=== PATIENT | male | born 1950 | race Hispanic/Latino ===

== ENCOUNTER 2024-07-30 07:36 | Inpatient (IN) | payer OTHER ==
[2024-07-30 09:02] LABS: ALT (SGPT) 12 U/L (8-55); AST (SGOT) 14 U/L (5-34); Albumin 3.8 g/dL (3.4-4.8); Alkaline Phosphatase 108 U/L (40-110); Anion Gap 16 mmol/L (10-20); BUN (Urea Nitrogen) 14 mg/dL (8.4-25.7); Bilirubin, Total 0.5 mg/dL (0.2-1.2); Calc. Creatinine Clearance 0 mL/min (70-130); Calcium 8.9 mg/dL (7.8-10.44); Carbon Dioxide 19 mmol/L (23-31); Chloride 104 mmol/L (98-107); Estimated GFR 68; Globulin 3.1 g/dL (2.4-3.5); Glucose 313 mg/dL (83-110); Potassium 3.9 mmol/L (3.5-5.1); Protein, Total 6.9 g/dL (5.8-8.1); Sodium 135 mmol/L (136-145)
[2024-07-30 09:07] LABS: Troponin I 0.024 ng/mL (< 0.028)
[2024-07-30 09:12] LABS: Hematocrit 19.4 % (42.0-52.0); Hemoglobin 4.9 g/dL (14.0-18.0); Mean Corpuscular HGB CONC 25.3 g/dL (32.0-36.0); Mean Corpuscular Hemoglobin 15.3 pg (27.0-31.0); Mean Corpuscular Volume 60.6 fL (78.0-98.0); Platelet Count 201 10x3/uL (130-400); RBC Distribution Width 23.6 % (11.5-14.5)
[2024-07-30 10:10] LABS: Reflex for Review?? YES
[2024-07-30 10:11] LABS: Band 1 % (5-11); Elliptocytes MODERATE= 6-15 cells HPF (0-1); Helmet Cells SLIGHT = 2-5 cells HPF (0-1); Hypochromia MODERATE=16-30 cells HPF (0-5); Lymphocytes 3 % (21-51); Microcytosis SLIGHT = 6-15 cells HPF (0-5); Neutrophil 96 % (42-75); Ovalocytes SLIGHT = 2-5 cells HPF (0-1); Polychromasia SLIGHT = 2-3 cells HPF (0-2); Target Cells SLIGHT = 2-5 cells HPF (0-1)
[2024-07-30 10:12] LABS: Platelet Adequacy Comment Platelets Normal
[2024-07-30] MEDS ORDERED: Ipratropium/Albuterol 3 ML NEB ONE (10:39)
[2024-07-30] MEDS ORDERED: Ondansetron PF 4 MG/2 ML Vial IVP PRN (11:09)
[2024-07-30] MEDS ORDERED: Dextrose 50% Abboject 50 ML SYRINGE SLOW IVP PRN (11:09)
[2024-07-30] MEDS ORDERED: Glucagon 1 MG/ML KIT IM PRN (11:09)
[2024-07-30] MEDS ORDERED: Acetaminophen 325 MG TAB PO PRN (11:09)
[2024-07-30] MEDS ORDERED: Dextrose 5% in Water 1,000 ML IV PRN (11:09)
[2024-07-30] MEDS ORDERED: Furosemide 20 MG TAB PO SCH (11:15)
[2024-07-30 14:35] VITALS: BMI 27.0
[2024-07-30 15:29] LABS: Iron 7 ug/dL (65-175); Iron Binding Capacity, Total 468 mcg/dL (261-462)
[2024-07-30 15:38] VITALS: BP 139/106
[2024-07-30 15:41] LABS: Troponin I 0.672 ng/mL (< 0.028)
[2024-07-30] MEDS: Pantoprazole 40 MG VIAL IVP SCH (15:44)
[2024-07-30] MEDS: Furosemide 40 MG (4 mL) VIAL ONE (15:45)
[2024-07-30] MEDS: Insulin Regular, Human 100 UNIT/ML 10 ML VIAL SC PRN (16:26)
[2024-07-30 19:43] LABS: Hematocrit 20.4 % (42.0-52.0); Hemoglobin 5.1 g/dL (14.0-18.0)
[2024-07-30] MEDS: GoLYTELY 4,000 ml Bottle PO SCH (20:11)
[2024-07-30] MEDS: Dexamethasone 4 mg/ml Vial SLOW IVP SCH (20:44)
[2024-07-30] MEDS: diphenhydrAMINE 50 MG/ML VIAL IVP SCH (20:44)
[2024-07-31] MEDS: Furosemide 40 MG (4 mL) VIAL SLOW IVP SCH (00:41)
[2024-07-31 04:34] LABS: #Basophils Less than 0.03 10x3/uL (0.0-0.2); #Eosinophils Less than 0.03 10x3/uL (0.0-0.7); %Basophils 0.1 % (0.0-1.0); %Lymphocytes 3.4 % (21.0-51.0); %Monocytes 2.6 % (0.0-10.0); %Neutrophils 92.7 % (42.0-75.0); Hematocrit 25.3 % (42.0-52.0); Mean Corpuscular HGB CONC 27.7 g/dL (32.0-36.0); Mean Corpuscular Hemoglobin 18.4 pg (27.0-31.0); Mean Corpuscular Volume 66.6 fL (78.0-98.0); Platelet Count 207 10x3/uL (130-400); RBC Distribution Width 27.1 % (11.5-14.5)
[2024-07-31 05:05] LABS: Anion Gap 14 mmol/L (10-20); BUN (Urea Nitrogen) 17 mg/dL (8.4-25.7); Calc. Creatinine Clearance 84 mL/min (70-130); Calcium 8.9 mg/dL (7.8-10.44); Carbon Dioxide 26 mmol/L (23-31); Chloride 104 mmol/L (98-107); Estimated GFR 90; Glucose 180 mg/dL (83-110); Potassium 3.6 mmol/L (3.5-5.1); Sodium 140 mmol/L (136-145)
[2024-07-31] MEDS: Famotidine/PF 20 mg/2ml Vial SLOW IVP SCH (08:38)
[2024-07-31] MEDS: Pantoprazole 40 MG VIAL IVP SCH (08:38)
[2024-07-31] MEDS ORDERED: PROPOFOL 20 ML ONE (13:24)
[2024-07-31] MEDS ORDERED: Lidocaine 1% PF 5 ML VIAL ONE (13:24)
[2024-07-31] MEDS ORDERED: Ketamine In 0.9 % NaCl 50 MG/5 ML SYRINGE ONE (14:58)
[2024-07-31] MEDS ORDERED: Etomidate 40 MG (20 mL) VIAL ONE (14:58)
[2024-07-31] MEDS ORDERED: PHENYLEPHRINE-NS 100 MCG/ML 10 ML SYRINGE ONE (15:09)
[2024-08-01 04:33] LABS: #Basophils Less than 0.03 10x3/uL (0.0-0.2); #Eosinophils Less than 0.03 10x3/uL (0.0-0.7); %Basophils 0.1 % (0.0-1.0); %Lymphocytes 10.3 % (21.0-51.0); %Monocytes 5.1 % (0.0-10.0); %Neutrophils 83.7 % (42.0-75.0); Hematocrit 25.6 % (42.0-52.0); Hemoglobin 7.3 g/dL (14.0-18.0); Mean Corpuscular HGB CONC 28.5 g/dL (32.0-36.0); Mean Corpuscular Hemoglobin 18.5 pg (27.0-31.0); Platelet Count 206 10x3/uL (130-400); RBC Distribution Width 26.6 % (11.5-14.5); Red Blood Cell (RBC) Count 3.94 mill/uL (4.70-6.10)
[2024-08-01 04:51] LABS: ALT (SGPT) 18 U/L (8-55); AST (SGOT) 24 U/L (5-34); Albumin 3.4 g/dL (3.4-4.8); Alkaline Phosphatase 93 U/L (40-110); Anion Gap 12 mmol/L (10-20); BUN (Urea Nitrogen) 25 mg/dL (8.4-25.7); Bilirubin, Total 0.7 mg/dL (0.2-1.2); Calc. Creatinine Clearance 79 mL/min (70-130); Calcium 8.4 mg/dL (7.8-10.44); Carbon Dioxide 25 mmol/L (23-31); Chloride 105 mmol/L (98-107); Estimated GFR 85; Globulin 2.9 g/dL (2.4-3.5); Glucose 165 mg/dL (83-110); Potassium 3.3 mmol/L (3.5-5.1); Protein, Total 6.3 g/dL (5.8-8.1); Sodium 139 mmol/L (136-145)
[2024-08-01] MEDS: Furosemide 20 MG (2 mL) VIAL SLOW IVP SCH (05:18)
[2024-08-01] MEDS: Pantoprazole DR 40 MG TAB PO SCH (09:26)
[2024-08-01] MEDS: cefTRIAXone\\ROCEPHIN 2 GM in Sodium Chloride 0.9% 100 ML IVPB SCH (12:00)
[2024-08-01] MEDS: Sodium Ferric Gluconate 250 MG in Sodium Chloride 0.9% 250 ML 250 ML IVPB SCH ×2 (17:19→17:58)
[2024-08-02 04:33] LABS: #Basophils 0.05 10x3/uL (0.0-0.2); #Eosinophils Less than 0.03 10x3/uL (0.0-0.7); %Basophils 0.4 % (0.0-1.0); %Eosinophils 0.1 % (0.0-10.0); %Lymphocytes 13.9 % (21.0-51.0); %Monocytes 6.4 % (0.0-10.0); %Neutrophils 78.1 % (42.0-75.0); Hematocrit 30.8 % (42.0-52.0); Hemoglobin 8.5 g/dL (14.0-18.0); Mean Corpuscular HGB CONC 27.6 g/dL (32.0-36.0); Mean Corpuscular Hemoglobin 19.6 pg (27.0-31.0); Platelet Count 238 10x3/uL (130-400); RBC Distribution Width 27.8 % (11.5-14.5); Red Blood Cell (RBC) Count 4.34 mill/uL (4.70-6.10)
[2024-08-02 04:46] LABS: ALT (SGPT) 17 U/L (8-55); AST (SGOT) 18 U/L (5-34); Albumin 3.3 g/dL (3.4-4.8); Alkaline Phosphatase 87 U/L (40-110); Anion Gap 12 mmol/L (10-20); BUN (Urea Nitrogen) 19 mg/dL (8.4-25.7); Bilirubin, Total 0.9 mg/dL (0.2-1.2); Calc. Creatinine Clearance 92 mL/min (70-130); Calcium 8.7 mg/dL (7.8-10.44); Carbon Dioxide 24 mmol/L (23-31); Chloride 107 mmol/L (98-107); Estimated GFR 94; Globulin 2.8 g/dL (2.4-3.5); Glucose 140 mg/dL (83-110); Potassium 3.2 mmol/L (3.5-5.1); Protein, Total 6.1 g/dL (5.8-8.1); Sodium 140 mmol/L (136-145)
[2024-08-02] MEDS ORDERED: Electrolyte Replacement Protocol 1 EACH FS SCH (10:00)
[2024-08-02] MEDS: Aspirin Chewable 81 MG TAB PO SCH (14:06)
[2024-08-02] MEDS: Potassium Chloride 20 MEQ TAB PO SCH (14:06)
[2024-08-02] MEDS ORDERED: Ipratropium/Albuterol 3 ML NEB NEB PRN (16:24)
[2024-08-02] MEDS: Amoxicillin/Potassium Clav 875 MG TAB PO SCH (20:33)
[2024-08-03 05:41] LABS: #Basophils 0.03 10x3/uL (0.0-0.2); %Basophils 0.3 % (0.0-1.0); %Eosinophils 1.1 % (0.0-10.0); %Lymphocytes 15.8 % (21.0-51.0); %Monocytes 5.7 % (0.0-10.0); %Neutrophils 76.4 % (42.0-75.0); Hematocrit 29.6 % (42.0-52.0); Hemoglobin 8.5 g/dL (14.0-18.0); Mean Corpuscular HGB CONC 28.7 g/dL (32.0-36.0); Mean Corpuscular Hemoglobin 19.6 pg (27.0-31.0); Mean Corpuscular Volume 68.2 fL (78.0-98.0); Platelet Count 204 10x3/uL (130-400); RBC Distribution Width 29.2 % (11.5-14.5); Red Blood Cell (RBC) Count 4.34 mill/uL (4.70-6.10)
[2024-08-03 13:27] VITALS: TEMP 98.4
== END 2024-08-03 13:15 | disposition home or self-care (01) | DRG 378 ==
LOC: ERS 07:36 → SUATTDRO 07:36 → EEVIPCON 07:36 → 2NO 10:25 → OBSVTOIN 15:15 → CCU 15:35 → IMCU/EMU 17:34
PROVIDERS: ADMIT Internal Medicine; ATTEND Student in an Organized Health Care Education/Training Program
PROC: 0W3P8ZZ Control Bleeding in Gastrointestinal Tract, Via Natural or Artificial Opening Endoscopic (ICD-10-PCS; principal; 2024-07-31)
PROC: 0DBN8ZZ Excision of Sigmoid Colon, Via Natural or Artificial Opening Endoscopic (ICD-10-PCS; 2024-07-31)
DX: K55.21 Angiodysplasia of colon with hemorrhage (principal); D62 Acute posthemorrhagic anemia; I25.10 Atherosclerotic heart disease of native coronary artery without angina pectoris; E10.9 Type 1 diabetes mellitus without complications; I10 Essential (primary) hypertension; K52.9 Noninfective gastroenteritis and colitis, unspecified; Z79.899 Other long term (current) drug therapy; Z79.4 Long term (current) use of insulin; Z79.82 Long term (current) use of aspirin; K63.5 Polyp of colon; K22.70 Barrett's esophagus without dysplasia; M19.90 Unspecified osteoarthritis, unspecified site
CPT/HCPCS: 36415; 36416; 36430; 71045; 80048; 80053; 82728; 83540; 83550; 83880; 84484; 85025; 85060; 86850; 86900; 86901; 88305; 93005; 93010; 94640; 94660; G0378; J0696; J1100; J1200; J1815; J1940; J2470; J2704; J2916; J3490; J7050; J7620; P9016